=== PATIENT | female | born 1965 | race Caucasian/White ===

== ENCOUNTER 2018-12-21 11:14 | Outpatient (CLI) | payer MEDICARE, MEDICAID ==
[~2018-12-21 11:14] MED LIST: BUSP10TA PO; LAMO100T63 PO; OMEP-110 PO; PROP20TA PO; QUET300T5 PO; SERT100T PO
[2018-12-21] MEDS ORDERED: CARI350T PO (11:54)
[2018-12-21] MEDS ORDERED: IMMU20VI IV (12:07)
[2018-12-21] MEDS ORDERED: FENT-58 TD (12:07)
== END 2018-12-21 23:59 | disposition home or self-care (01) ==
LOC: STAR 11:14
PROVIDERS: ATTEND Obstetrics & Gynecology Female Pelvic Medicine and Reconstructive Surgery
DX: Z02.9 Encounter for administrative examinations, unspecified (principal)

== ENCOUNTER 2018-12-27 09:37 | Day surgery (SDC) | payer MEDICARE, MEDICAID ==
[2018-12-21 11:47] VITALS: BP 122/86
[~2018-12-27] VITALS: Ht 157.5 cm; Wt 106.0 kg
[~2018-12-27 09:37] MED LIST changes: +BUPIVACAINE/PF 0.25% ONE; +CARI350T PO; +EPINEPHRINE 1 MG/ML, 1ML ONE; +FENT-58 TD; +IMMU20VI IV; +NEOMY/POLYMYXIN B GU IRR. 1 ML ONE
[2018-12-27] MEDS ORDERED: FENTANYL PF 250 MCG/5ML ONE (10:03)
[2018-12-27] MEDS ORDERED: MIDAZOLAM 1 MG/ML, 2ML ONE (10:03)
[2018-12-27] MEDS ORDERED: DEXAMETHASONE 4 MG/ML, 1ML ONE (10:07)
[2018-12-27] MEDS ORDERED: GLYCOPYRROLATE 0.2MG/1ML, 5ML ONE (10:07)
[2018-12-27] MEDS ORDERED: CEFAZOLIN 1,000 MG ONE (10:07)
[2018-12-27] MEDS ORDERED: ONDANSETRON 2MG/ML, 2ML ONE (10:07)
[2018-12-27] MEDS ORDERED: NEOSTIGMINE 1 MG/ML, 10ML ONE (10:07)
[2018-12-27] MEDS ORDERED: ROCURONIUM 10MG/ML,5ML ONE (10:07)
[2018-12-27] MEDS ORDERED: PROPOFOL 10 MG/ML, 20ML ONE (10:07)
[2018-12-27 10:08] VITALS: BP 122/86
[2018-12-27] MEDS ORDERED: LACTATED RINGERS 1,000 ML IV SCH (10:16)
[2018-12-27 10:21] LABS: HCG UR SG 1.024 (1.003-1.030)
[2018-12-27] MEDS ORDERED: GABAPENTIN 300 MG CAPSULE PO ONE (10:30)
[2018-12-27] MEDS ORDERED: ACETAMINOPHEN 500 MG TABLET PO ONE (10:30)
[2018-12-27] MEDS ORDERED: ONDANSETRON 2MG/ML, 2ML IV PRN (12:00)
[2018-12-27] MEDS ORDERED: PROMETHAZINE 25 MG/ML, 1ML IV PRN (12:00)
[2018-12-27] MEDS ORDERED: HYDROcodone/APAP 7.5-325MG/15ML UDC PO PRN (12:00)
[2018-12-27] MEDS ORDERED: PROMETHAZINE 25 MG/ML, 1ML IM PRN ×2 (12:00)
[2018-12-27] MEDS ORDERED: HALOPERIDOL 5 MG/ML IV PRN (12:00)
[2018-12-27] MEDS ORDERED: MEPERIDINE/PF 25MG/0.5ML IVPush PRN (12:00)
[2018-12-27] MEDS ORDERED: hydrALAzine 20 MG/ML, 1ML IV PRN (12:00)
[2018-12-27] MEDS ORDERED: OXYcodone 5 MG/5 ML ORAL.SOL UDC PO PRN (12:00)
[2018-12-27] MEDS ORDERED: MORPHINE SULFATE 4 MG/ML, 1ML IVPush PRN (12:00)
[2018-12-27] MEDS ORDERED: PROMETHAZINE 12.5 MG SUPP PR PRN (12:00)
[2018-12-27] MEDS ORDERED: PROMETHAZINE 25 MG SUPP PR PRN (12:00)
[2018-12-27] MEDS ORDERED: FENTANYL PF 100 MCG/2ML IV PRN (12:00)
[2018-12-27] MEDS ORDERED: LABETALOL 5 MG/ML SYRINGE IV PRN (12:00)
[2018-12-27] MEDS ORDERED: ONDANSETRON ODT 8 MG PO PRN (12:00)
[2018-12-27] MEDS ORDERED: KETOROLAC 30 MG/1 ML ONE (12:38)
[2018-12-27] MEDS ORDERED: OXYcodone 5 MG/5 ML ORAL.SOL UDC ONE (14:07)
[2018-12-27] MEDS ORDERED: FENTANYL PF 100 MCG/2ML ONE (14:07)
[2018-12-27] MEDS ORDERED: HYDROmorphone 1 MG/ML, 1ML VIAL ONE (14:07)
[2018-12-27] MEDS: HYDROmorphone 2 MG/ML, 1ML IVPush PRN ×2 (14:11→14:29)
== END 2018-12-27 17:40 | disposition home or self-care (01) ==
LOC: OUT 09:37
PROVIDERS: ATTEND Obstetrics & Gynecology Female Pelvic Medicine and Reconstructive Surgery
DX: N83.01 Follicular cyst of right ovary (principal); N81.2 Incomplete uterovaginal prolapse; N95.0 Postmenopausal bleeding; N39.46 Mixed incontinence; N32.81 Overactive bladder; N88.8 Other specified noninflammatory disorders of cervix uteri; K21.9 Gastro-esophageal reflux disease without esophagitis; Z88.8 Allergy status to other drugs, medicaments and biological substances
CPT/HCPCS: 57265; 57282; 57288; 58552; 81025; 88307; C1771; J0171; J0690; J1100; J1170; J1885; J2250; J2405; J2704; J2710; J3010; J3490; J7120